=== PATIENT | male | born 1965 ===

== ENCOUNTER 2020-07-04 14:53 | Emergency (ER) | payer MEDICARE ==
[~2020-07-04] VITALS: Ht 180.3 cm; Wt 63.5 kg
[~2020-07-04 14:53] MED LIST: ALBIPROI INH; ALBU.083IS IH; ALBU90OI INH; ALBU90OI6 INH; ALBUIS IH; BECL40OI INH; BUDE6HFA INH; CODGUAEL PO; DOXY100 PO; LORA1 PO; MOXI400 PO; OXYACE5T PO; PRED20 PO; SULTRISS PO; TIOT18 IH; TRAM50 PO; ZOLP10 PO; ZOLP5 PO; [UNRECOGNIZED DRUG - REMARK]
[2020-07-04 15:28] LABS: BASOPHILS ABSOLUTE AUTO 0.07 K/mm3 (0.00-0.23); BASOPHILS PERCENT AUTO 1 % (0-2); EOSINOPHILS ABSOLUTE AUTO 0.41 K/mm3 (0.00-0.68); EOSINOPHILS PERCENT AUTO 3 % (0-6); Hematocrit 48.8 % (37.0-53.0); IMMATURE GRAN PERCENT AUTO 1 % (0-1); LYMPHOCYTES PERCENT AUTO 18 % (21-46); MONOCYTES ABSOLUTE AUTO 1.22 K/mm3 (0.16-1.47); MONOCYTES PERCENT AUTO 10 % (4-13); Mean Corpuscular HGB 28.5 pg (26.0-34.0); Mean Corpuscular HGB Conc 32.8 g/dL (31.5-36.5); Mean Corpuscular Volume 87 fL (80-100); Mean Platelet Volume 9.1 fL (9.1-12.4); NEUTROPHILS ABSOLUTE AUTO 8.01 K/mm3 (1.96-9.15); NEUTROPHILS PERCENT AUTO 67 % (41-73); Platelet Count 283 K/mm3 (150-400); RDW Coefficient Variation 13.2 % (11.7-14.2); RDW Standard Deviation 41.7 fL (35.1-46.3); Red Blood Cell Count 5.61 M/mm3 (4.30-5.90); White Blood Cell Count 11.91 K/mm3 (4.00-11.30)
[2020-07-04] MEDS ORDERED: TRAZ50 PO (15:38)
[2020-07-04] MEDS ORDERED: TRAM50 PO (15:38)
[2020-07-04] MEDS ORDERED: GENT.3OPSO (15:39)
[2020-07-04] MEDS ORDERED: GENT15TO TOP (15:39)
[2020-07-04] MEDS ORDERED: AZIT250 PO (16:17)
[2020-07-04 17:18] LABS: Alanine Aminotransfer (ALT/SGP 39 U/L (12-78); Albumin, Blood 3.6 g/dL (3.4-5.0); Albumin/Globulin Ratio 0.8 (0.8-1.8); Alk Phos 109 U/L (50-136); Anion Gap 6 mmol/L (6-16); Aspartate Aminotrans (AST/SGOT 22 U/L (12-37); Bilirubin, Total 0.2 mg/dL (0.1-1.0); Blood Urea Nitrogen 19 mg/dL (8-24); Bun/Creatinine Ratio 21.2 (12.0-20.0); CO2, Blood 25 mmol/L (21-32); Calcium, Blood 9.1 mg/dL (8.5-10.1); Chloride, Blood 106 mmol/L (98-108); Globulin, Blood 4.6 g/dL (2.2-4.0); Glomerular Filtration Rate >60 (60-); Glucose, Blood 77 mg/dL (70-99); Potassium, Blood 4.3 mmol/L (3.5-5.5); Sodium, Blood 137 mmol/L (136-145); Total Protein, Blood 8.2 g/dL (6.4-8.2); Troponin I <0.015 ng/mL (0.000-0.040)
[2020-09-18] MEDS ORDERED: PRED20 (18:33)
[2020-09-18] MEDS ORDERED: AMOCLA875 (18:33)
[2020-09-18] MEDS ORDERED: CICLODAN6.6 ML (18:34)
== END 2020-07-04 17:42 | disposition home or self-care (01) ==
LOC: ER 14:53
PROVIDERS: Physician Assistant
DX: J18.9 Pneumonia, unspecified organism (principal); R07.89 Other chest pain; J43.9 Emphysema, unspecified; F17.200 Nicotine dependence, unspecified, uncomplicated; Z79.899 Other long term (current) drug therapy; Z88.6 Allergy status to analgesic agent
CPT/HCPCS: 36415; 71046; 80053; 84484; 85025; 93005; 93010; 99285-25

== ENCOUNTER → 2021-08-18 | Outpatient (CLI) | payer MEDICARE ==
[~2021-08-18] MED LIST changes: +AMOCLA875; +AZIT250 PO; +CICLODAN6.6 ML; +GENT.3OPSO; +GENT15TO TOP; +PRED20; +TRAZ50 PO
== END | disposition home or self-care (01) ==
LOC: LAB SHORT 10:20
DX: J47.1 Bronchiectasis with (acute) exacerbation (principal); J43.9 Emphysema, unspecified; R06.02 Shortness of breath; R05.9 Cough, unspecified; Z87.891 Personal history of nicotine dependence
CPT/HCPCS: 87070; 87205

== ENCOUNTER 2024-09-08 16:18 | Emergency (ER) | payer MEDICARE ==
[~2024-09-08] VITALS: Ht 180.3 cm; Wt 63.5 kg
[~2024-09-08 16:18] MED LIST changes: +GABA100 PO; +MELO7.5 PO; +Prednisone20 MG PO; +ZOLPIDEM TARTRA10 MG PO
[2024-09-08] MEDS ORDERED: MethylPREDNISolone Sod Succ 125 MG Vial IV ONE (16:30)
[2024-09-08] MEDS ORDERED: Albuterol 2.5 MG/3 ML VIAL INH SCH (16:30)
[2024-09-08] MEDS ORDERED: NS 1,000 ML IV SCH ×2 (16:30→20:30)
[2024-09-08 16:32] LABS: Base Excess Venous 2.9 mmol/L; Bicarbonate Venous 26.3 mmol/L (24.0-30.0); PCO2 Venous 43.1 mmHg (38-42); pH Blood Venous 7.41 (7.34-7.37)
[2024-09-08] MEDS ORDERED: HYDHCL25 (16:35)
[2024-09-08] MEDS ORDERED: MECL25 PO (16:35)
[2024-09-08 16:55] LABS: BASOPHILS ABSOLUTE AUTO 0.09 K/mm3 (0.00-0.23); BASOPHILS PERCENT AUTO 1 % (0-2); EOSINOPHILS ABSOLUTE AUTO 0.16 K/mm3 (0.00-0.68); EOSINOPHILS PERCENT AUTO 1 % (0-6); Hematocrit 51.5 % (37.0-53.0); Hemoglobin 16.3 g/dL (13.5-17.5); IMMATURE GRAN ABSOLUTE AUTO 0.03 K/mm3 (0.00-0.10); IMMATURE GRAN PERCENT AUTO 0 % (0-1); LYMPHOCYTES PERCENT AUTO 10 % (21-46); MONOCYTES ABSOLUTE AUTO 1.98 K/mm3 (0.16-1.47); MONOCYTES PERCENT AUTO 17 % (4-13); Mean Corpuscular HGB 27.2 pg (26.0-34.0); Mean Corpuscular HGB Conc 31.7 g/dL (31.5-36.5); Mean Corpuscular Volume 86 fL (80-100); Mean Platelet Volume 9.3 fL (9.1-12.4); NEUTROPHILS ABSOLUTE AUTO 8.13 K/mm3 (1.96-9.15); NEUTROPHILS PERCENT AUTO 70 % (41-73); Platelet Count 365 K/mm3 (150-400); RDW Coefficient Variation 14.1 % (11.7-14.2); RDW Standard Deviation 44.4 fL (35.1-46.3); White Blood Cell Count 11.59 K/mm3 (4.00-11.30)
[2024-09-08 17:17] LABS: Albumin, Blood 3.7 g/dL (3.4-5.0); Albumin/Globulin Ratio 0.8 (0.8-1.8); Bilirubin, Total 0.3 mg/dL (0.1-1.0); Bun/Creatinine Ratio 12.9 (12.0-20.0); Calcium, Blood 9.2 mg/dL (8.5-10.1); Creatinine, Blood 0.93 mg/dL (0.60-1.20); Globulin, Blood 4.7 g/dL (2.2-4.0); Potassium, Blood 4.1 mmol/L (3.5-5.5); Total Protein, Blood 8.4 g/dL (6.4-8.2)
[2024-09-08] MEDS ORDERED: Morphine Sulfate 4 MG/1 ML Injection IV ONE ×2 (18:10→18:50)
[2024-09-08 18:22] LABS: Influenza A, PCR NEGATIVE (NEGATIVE); Influenza B, PCR NEGATIVE (NEGATIVE); Resp Syncytial Virus, PCR NEGATIVE (NEGATIVE); SARS-Cov-2 (COVID-19) PCR, MMC NEGATIVE (NEGATIVE)
[2024-09-08] MEDS ORDERED: Azithromycin 500 MG in NS 250 ML IV ONE (18:45)
[2024-09-08] MEDS ORDERED: CefTRIAXone Sodium 2,000 MG in NS 100 ML IV ONE (18:45)
[2024-09-08] MEDS ORDERED: Ipratropium/Albuterol SulF 2.5-0.5MG/3 ML Amp INH SCH (20:30)
[2024-09-08] MEDS ORDERED: Ondansetron HCl 2 MG / ML 2ML Vial IV PRN (20:30)
[2024-09-08] MEDS ORDERED: Tiotropium Bromide 2.5 MCG/ACT MIST INHAL (10 ACT/4 GM) INH SCH (20:40)
[2024-09-08] MEDS ORDERED: Gabapentin 100 MG Cap PO SCH (21:00)
[2024-09-08] MEDS ORDERED: TraZODone HCl 50 MG Tab PO SCH (21:00)
[2024-09-08] MEDS ORDERED: Morphine Sulfate 4 MG/1 ML Injection IV PRN (22:35)
[2024-09-08 23:30] VITALS: BP 142/74
[2024-09-09] MEDS ORDERED: Enoxaparin 40 MG/0.4 ML SYR SC SCH (09:00)
[2024-09-09] MEDS ORDERED: CefTRIAXone Sodium 1,000 MG in NS 100 ML IV SCH (18:00)
[2024-09-09] MEDS ORDERED: Azithromycin 500 MG in NS 250 ML IV SCH (21:00)
== END 2024-09-09 00:13 ==
LOC: ER 16:18
PROVIDERS: Student in an Organized Health Care Education/Training Program
DX: J93.9 Pneumothorax, unspecified (principal); J18.9 Pneumonia, unspecified organism; J43.9 Emphysema, unspecified
CPT/HCPCS: 0241U; 32551; 71045; 71046; 80053; 82803; 84145; 85025; 93005; 93010; 94640; 94664; 96365-59; 96367-59; 96375-59; 96376-59; 99285-25; A9270; J0456; J0696; J2270; J2919; J7030; J7050

== ENCOUNTER 2024-10-16 13:51 | Inpatient (IN) | payer MEDICARE ==
[~2024-10-16] VITALS: Ht 177.8 cm; Wt 62.3 kg
[~2024-10-16 13:51] MED LIST changes: +HYDHCL25; +MECL12.5 PO
[2024-10-16 14:48] LABS: BASOPHILS ABSOLUTE AUTO 0.07 K/mm3 (0.00-0.23); BASOPHILS PERCENT AUTO 0 % (0-2); EOSINOPHILS ABSOLUTE AUTO 0.06 K/mm3 (0.00-0.68); EOSINOPHILS PERCENT AUTO 0 % (0-6); Hematocrit 50.7 % (37.0-53.0); Hemoglobin 15.8 g/dL (13.5-17.5); IMMATURE GRAN PERCENT AUTO 0 % (0-1); LYMPHOCYTES PERCENT AUTO 5 % (21-46); MONOCYTES ABSOLUTE AUTO 1.57 K/mm3 (0.16-1.47); MONOCYTES PERCENT AUTO 7 % (4-13); Mean Corpuscular HGB 27.3 pg (26.0-34.0); Mean Corpuscular HGB Conc 31.2 g/dL (31.5-36.5); Mean Corpuscular Volume 88 fL (80-100); Mean Platelet Volume 9.9 fL (9.1-12.4); NEUTROPHILS ABSOLUTE AUTO 19.43 K/mm3 (1.96-9.15); NEUTROPHILS PERCENT AUTO 87 % (41-73); Platelet Count 292 K/mm3 (150-400); RDW Coefficient Variation 13.3 % (11.7-14.2); RDW Standard Deviation 42.6 fL (35.1-46.3); Red Blood Cell Count 5.78 M/mm3 (4.30-5.90); White Blood Cell Count 22.23 K/mm3 (4.00-11.30)
[2024-10-16 15:04] LABS: Albumin, Blood 3.4 g/dL (3.4-5.0); Albumin/Globulin Ratio 0.7 (0.8-1.8); Bilirubin, Total 0.7 mg/dL (0.1-1.0); Bun/Creatinine Ratio 17.9 (12.0-20.0); Calcium, Blood 9.4 mg/dL (8.5-10.1); Creatinine, Blood 0.9 mg/dL (0.60-1.20); Globulin, Blood 5.2 g/dL (2.2-4.0); Potassium, Blood 3.9 mmol/L (3.5-5.5); Total Protein, Blood 8.6 g/dL (6.4-8.2)
[2024-10-16] MEDS ORDERED: Azithromycin 500 MG in NS 250 ML IV ONE (15:15)
[2024-10-16] MEDS ORDERED: AZIT250 PO (15:34)
[2024-10-16] MEDS ORDERED: TAMSULOSIN HCL0.4 M1 PO (15:34)
[2024-10-16] MEDS ORDERED: SPIRIVA RESPIMAT4 G3 INH (15:35)
[2024-10-16] MEDS ORDERED: PROAIR DIGIHAL90 MCG INH (15:36)
[2024-10-16] MEDS ORDERED: Morphine Sulfate 4 MG/1 ML Injection IV PRN ×2 (15:55→19:15)
[2024-10-16] MEDS ORDERED: OxyCODONE HCL 5 MG TAB PO PRN (16:00)
[2024-10-16] MEDS ORDERED: Lactated Ringer's 1,000 ML IV SCH ×2 (16:00→17:00)
[2024-10-16] MEDS ORDERED: Ipratropium/Albuterol SulF 2.5-0.5MG/3 ML Amp INH PRN (16:10)
[2024-10-16] MEDS ORDERED: Albuterol 2.5 MG/3 ML VIAL INH PRN (16:10)
[2024-10-16] MEDS ORDERED: Ondansetron 4 MG SoluTab MM PRN (16:15)
[2024-10-16] MEDS ORDERED: Polyethylene Glycol 3350 17 gm PO PRN (16:15)
[2024-10-16] MEDS ORDERED: Docusate Sodium/Senna 1 Tab PO PRN (16:15)
[2024-10-16 16:35] LABS: Bicarbonate Venous 26.4 mmol/L (24.0-30.0); PCO2 Venous 44.3 mmHg (38-42); pH Blood Venous 7.41 (7.34-7.37)
[2024-10-16 16:52] LABS: Influenza A, PCR NEGATIVE (NEGATIVE); Influenza B, PCR NEGATIVE (NEGATIVE); Resp Syncytial Virus, PCR NEGATIVE (NEGATIVE); SARS-Cov-2 (COVID-19) PCR, MMC NEGATIVE (NEGATIVE)
[2024-10-16] MEDS ORDERED: CefTRIAXone Sodium 1,000 MG in NS 100 ML IV SCH (17:00)
[2024-10-16] MEDS ORDERED: MethylPREDNISolone Sod Succ 125 MG Vial IV SCH (17:00)
[2024-10-16 17:22] VITALS: BP 154/109
[2024-10-16] MEDS ORDERED: TIZANIDINE HCL2 M1 PO (17:27)
[2024-10-16] MEDS ORDERED: OXYC5 PO (17:30)
[2024-10-16] MEDS ORDERED: PREG50 PO (17:32)
[2024-10-16] MEDS ORDERED: CELE100 PO (17:33)
[2024-10-16] MEDS ORDERED: Atarax10 MG PO (17:34)
[2024-10-16] MEDS ORDERED: OMEP20ER PO (17:36)
[2024-10-16] MEDS ORDERED: MELA3 PO (17:37)
[2024-10-16] MEDS ORDERED: Meclizine HCl 25 MG Tab PO PRN (18:30)
[2024-10-16] MEDS ORDERED: TiZANidine HCl 4 MG Tab PO PRN (18:30)
[2024-10-16] MEDS ORDERED: HyDROXyzine HCl 10 MG Tab PO PRN (18:30)
[2024-10-16 19:58] VITALS: BP 138/71
[2024-10-16 20:44] LABS: Acinetobacter baumannii DNA Not Detected copy/mL (NOT DETECT); Adenovirus DNA Not Detected (NOT DETECT); CTX-M Resistance Gene Not Detected; Chlamydia pneumonia Not Detected (NOT DETECT); Enterobacter cloacae DNA Not Detected copy/mL (NOT DETECT); Escherichia coli DNA Not Detected copy/mL (NOT DETECT); Haemophilus influenzae DNA Not Detected copy/mL (NOT DETECT); Human Coronavirus RNA Not Detected (NOT DETECT); IMP Resistance Gene Not Detected; KPC Resistance Gene Not Detected; Klebsiella aerogenes DNA Not Detected copy/mL (NOT DETECT); Klebsiella oxytoca DNA Not Detected copy/mL (NOT DETECT); Klebsiella pneumoniae DNA Not Detected copy/mL (NOT DETECT); Legionella pneumophila Not Detected (NOT DETECT); Moraxella catarrhalis DNA Not Detected copy/mL (NOT DETECT); Mycoplasma pneumoniae Not Detected (NOT DETECT); NDM Resistance Gene Not Detected; OXA-48-like Resistance Gene Not Detected; Proteus sp DNA Not Detected copy/mL (NOT DETECT); Pseudomonas aeruginosa DNA Not Detected copy/mL (NOT DETECT); Serratia marcescens DNA Detected Bin >=10^7 copy/mL (NOT DETECT); Staphylococcus aureus DNA Not Detected copy/mL (NOT DETECT); Streptococcus agalactiae DNA Not Detected copy/mL (NOT DETECT); Streptococcus pneumoniae DNA Not Detected copy/mL (NOT DETECT); Streptococcus pyogenes DNA Not Detected copy/mL (NOT DETECT); VIM Resistance Gene Not Detected
[2024-10-16 20:45] LABS: Human Metapneumovirus RNA Not Detected (NOT DETECT); Influenza virus A RNA Not Detected (NOT DETECT); Influenza virus B RNA Not Detected (NOT DETECT); Parainfluenza virus RNA Not Detected (NOT DETECT); Respiratory syncytial Vir RNA Not Detected (NOT DETECT); Rhinovirus+Enterovirus RNA Not Detected (NOT DETECT)
[2024-10-16] MEDS ORDERED: Melatonin 3 MG Tab PO SCH (21:00)
[2024-10-16] MEDS ORDERED: Pregabalin 50 MG Capsule PO SCH (21:00)
[2024-10-16 21:43] LABS: Adenovirus Not Detected (NOT DETECT); Bordetella pertussis Not Detected (NOT DETECT); Chlamydophila pneumoniae Not Detected (NOT DETECT); Coronavirus 229E Not Detected (NOT DETECT); Coronavirus HKU1 Not Detected (NOT DETECT); Coronavirus NL63 Not Detected (NOT DETECT); Coronavirus OC43 Not Detected (NOT DETECT); Human Metapneumovirus Not Detected (NOT DETECT); Human Rhinovirus/Enterovirus Not Detected (NOT DETECT); Influenza A/2009-H1 Not Detected (NOT DETECT); Influenza A/H1 Not Detected (NOT DETECT); Influenza A/H3 Not Detected (NOT DETECT); Influenza B Not Detected (NOT DETECT); Mycoplasma pneumoniae Not Detected (NOT DETECT); Parainfluenza Virus 1 Not Detected (NOT DETECT); Parainfluenza Virus 2 Not Detected (NOT DETECT); Parainfluenza Virus 3 Not Detected (NOT DETECT); Parainfluenza Virus 4 Not Detected (NOT DETECT); Respiratory Syncytial Virus Not Detected (NOT DETECT); SARS-Cov-2 (COVID-19), BioFire Not Detected (NOT DETECT)
[2024-10-17] MEDS ORDERED: TraZODone HCl 50 MG Tab PO PRN (02:09)
[2024-10-17 03:20] VITALS: BP 146/83
[2024-10-17 04:42] LABS: BASOPHILS PERCENT AUTO 0 % (0-2); EOSINOPHILS PERCENT AUTO 0 % (0-6); Hematocrit 40.6 % (37.0-53.0); Hemoglobin 13.1 g/dL (13.5-17.5); IMMATURE GRAN ABSOLUTE AUTO 0.05 K/mm3 (0.00-0.10); IMMATURE GRAN PERCENT AUTO 0 % (0-1); LYMPHOCYTES ABSOLUTE AUTO 0.43 K/mm3 (0.84-5.20); LYMPHOCYTES PERCENT AUTO 3 % (21-46); MONOCYTES ABSOLUTE AUTO 0.13 K/mm3 (0.16-1.47); MONOCYTES PERCENT AUTO 1 % (4-13); Mean Corpuscular HGB 28.4 pg (26.0-34.0); Mean Corpuscular HGB Conc 32.3 g/dL (31.5-36.5); Mean Corpuscular Volume 88 fL (80-100); NEUTROPHILS ABSOLUTE AUTO 12.65 K/mm3 (1.96-9.15); NEUTROPHILS PERCENT AUTO 95 % (41-73); Platelet Count 209 K/mm3 (150-400); RDW Coefficient Variation 13.1 % (11.7-14.2); RDW Standard Deviation 41.8 fL (35.1-46.3); Red Blood Cell Count 4.62 M/mm3 (4.30-5.90); White Blood Cell Count 13.26 K/mm3 (4.00-11.30)
[2024-10-17 05:03] LABS: Bun/Creatinine Ratio 23.3 (12.0-20.0); Calcium, Blood 8.7 mg/dL (8.5-10.1); Creatinine, Blood 0.77 mg/dL (0.60-1.20); Potassium, Blood 4.5 mmol/L (3.5-5.5)
[2024-10-17] MEDS ORDERED: Omeprazole 20 MG CapCR PO SCH (06:00)
--- NOTE | 2024-10-17 06:44 | NUR ---
Patient was awake most of the night. pain controled mostly with medication. prn for sleep given althought ineffective.
[2024-10-17 07:41] VITALS: BP 134/72
[2024-10-17] MEDS ORDERED: Celecoxib 100 MG Cap PO SCH (09:00)
[2024-10-17] MEDS ORDERED: Tamsulosin HCl 0.4 MG Cap PO SCH (09:00)
[2024-10-17] MEDS ORDERED: Enoxaparin 40 MG/0.4 ML SYR SC SCH (09:00)
[2024-10-17] MEDS ORDERED: QUEtiapine Fumarate 25 MG Tab PO PRN (17:25)
[2024-10-17] MEDS ORDERED: Azithromycin 500 MG in NS 250 ML IV SCH (18:00)
--- NOTE | 2024-10-17 18:14 | NUR ---
SHIFT SUMMARY DAY A&oX4, VSS, LUNG SOUNDS AND BREATHING GREATLY IMPROVED, PT WALKED LAPS IN HALLWAY SEVERAL TIMES W/DEPENDENCY PROGRAM DIRECTOR THIS SHIFT, MEDICATED FOR PAIN PER, SEROQUEL ORDERED FOR SLEEP TONIGHT, PT C/O NOT BEING ABLE TO SLEEP, WILL CONT TO MONITOR UNTIL REPORT GIVEN TO ONCOMING NURSE.
[2024-10-17 19:16] VITALS: BP 142/83
[2024-10-18 02:28] VITALS: BP 127/77
--- NOTE | 2024-10-18 04:20 | NUR ---
SHIFT SUMMARY: ASSUMMED CARE AT 0030 FROM SENIOR RESERVOIR ENGINEER RADHA. AOX4. VSS. WHEEZES NOTED TO LUNG SOUNDS, BUT PT IS ON BASELINE OF 2L O2. NO RESPIRATORY DISTRESS OR INCREASED WORK OF BREATHING NOTED. CALL LIGHT IS WITHIN REACH. BED IS LOW AND LOCKED.
[2024-10-18 07:24] VITALS: BP 153/82
--- NOTE | 2024-10-18 11:34 | NUR ---
SPOKE TO [facility] IN INFECTION CONTROL- THE PT HAS A SPUTUM CULTURE WITH A FINAL RESULT THAT SUGESTS POSSIBLE NEED FOR ISOLATION. AND STATES RESULT WAS REPORTED TO [facility]. [facility] PASTOR REVIEWED, PT RETURNED TO DROPPLET/CONTACT ISOLATION PER INFECTION PREVENTION.
--- NOTE | 2024-10-18 14:01 | NUR ---
TRANSFER PT CARE TO [facility]GROVE- BEDSIDE REPORT COMPLETED PAIN MED GIVEN JUST PRIOR TO REPORT. PT SITTING UP IN BED TALKING TO STAFF NO S&S OF DISTRESS NOTED.
--- NOTE | 2024-10-18 15:09 | NUR ---
SHIFT SUMMARY: PATIENT IS IN ROOM WATCHING TV, CURRENTLY ON 2 LITERS O2, RESPIRATIONS SLIGHTLY LABORED, NO REPORTS OF SOB. HE HAS BEEN SITTING AT BEDSIDE MOST OF THIS SHIFT. NO TELEMETRY AND NO REPORTS OF CHEST PAIN OR DISCOMFORT. IV REMOVED FROM L ARM DUE TO DISCOMFORT, IV INSERTED IN R FOREARM. BLOOD DRAW ON RIGHT SIDE THIS SHIFT. RN ADMINISTERED IV MORPHINE AND NOTICED RED VEIN ABOVE CANNULA SIGHT, RESOLVED AND MONITORING THIS SHIFT. PATIENT WAS A LIMITED ASSIST TO BATHROOM AND CONTINENT OF BOWEL AND BLADDER. PAIN LEVEL 9/10 AND MEDICATED PER EMAR. PATIENT HAS BEEN PLEASANT AN COOPERATIVE WITH TREATMENT. CALL LIGHT IN PLACE AND USING APPROPRIATELY. NO BED/CHAIR ALARMS.
--- NOTE | 2024-10-18 15:25 | NUR ---
SHIFT SUMMARY ASSUMED PT FROM DAWIT ANDREWS @ 1500. nO ACUTE CHANGES SINCE ASSUMING CARE, PT STATES HIS BREATHING HAS IMPROVED AND HE HAS BEEN COUGHING/CLEARING ALOT OF PHLEGM. DRESSING CHANGED ON R CHEST THIS SHIFT, NO DRAINAGE, NO S/SX OF INFECTION, CLEANED AND REPLACED DRESSING. PT BEDRESTING AT THIS TIME, CALL LIGHT IN REACH, WILL CONT TO MONITOR.
[2024-10-18 15:48] VITALS: BP 157/90
[2024-10-18] MEDS ORDERED: ALBU2.5V5 NEB (16:10)
[2024-10-18] MEDS ORDERED: MOMETASONE 0.1% (16:12)
[2024-10-19 04:33] VITALS: BP 122/74
[2024-10-19 04:47] LABS: BASOPHILS ABSOLUTE AUTO 0.01 K/mm3 (0.00-0.23); BASOPHILS PERCENT AUTO 0 % (0-2); EOSINOPHILS PERCENT AUTO 0 % (0-6); Hematocrit 40.9 % (37.0-53.0); Hemoglobin 13.2 g/dL (13.5-17.5); IMMATURE GRAN ABSOLUTE AUTO 0.15 K/mm3 (0.00-0.10); IMMATURE GRAN PERCENT AUTO 1 % (0-1); LYMPHOCYTES ABSOLUTE AUTO 0.43 K/mm3 (0.84-5.20); LYMPHOCYTES PERCENT AUTO 3 % (21-46); MONOCYTES ABSOLUTE AUTO 0.44 K/mm3 (0.16-1.47); MONOCYTES PERCENT AUTO 3 % (4-13); Mean Corpuscular HGB 28.4 pg (26.0-34.0); Mean Corpuscular HGB Conc 32.3 g/dL (31.5-36.5); Mean Corpuscular Volume 88 fL (80-100); NEUTROPHILS ABSOLUTE AUTO 16.26 K/mm3 (1.96-9.15); NEUTROPHILS PERCENT AUTO 94 % (41-73); Platelet Count 208 K/mm3 (150-400); RDW Coefficient Variation 13.6 % (11.7-14.2); RDW Standard Deviation 43.9 fL (35.1-46.3); Red Blood Cell Count 4.65 M/mm3 (4.30-5.90); White Blood Cell Count 17.29 K/mm3 (4.00-11.30)
[2024-10-19 05:03] LABS: Bun/Creatinine Ratio 22.9 (12.0-20.0); Calcium, Blood 8.9 mg/dL (8.5-10.1); Creatinine, Blood 0.83 mg/dL (0.60-1.20); Potassium, Blood 4.1 mmol/L (3.5-5.5)
--- NOTE | 2024-10-19 06:08 | NUR ---
SHIFT SUMMARY PT SLEPT INTERMITTENTLY DURING THE NIGHT. MEDICATED FOR PAIN PER EMAR. PT WITH VARIOUS AREAS OF CHRONIC PAIN. PT MAINTAINED ON OXYGEN AT 2L NC, INCREASING TO 3L NC WHEN HE GETS OOB. PT STATES IMPROVEMENT OF SOB. BED IN LOWEST POSITION, CALL LIGHT WITHIN REACH, SIDERAILS UP X2.
[2024-10-19 07:52] VITALS: BP 149/81
[2024-10-19 16:15] VITALS: BP 164/90
[2024-10-19 19:18] VITALS: BP 155/90
[2024-10-20 02:48] VITALS: BP 160/80
[2024-10-20 04:51] LABS: BASOPHILS ABSOLUTE AUTO 0.03 K/mm3 (0.00-0.23); BASOPHILS PERCENT AUTO 0 % (0-2); EOSINOPHILS ABSOLUTE AUTO 0.01 K/mm3 (0.00-0.68); EOSINOPHILS PERCENT AUTO 0 % (0-6); Hemoglobin 12.9 g/dL (13.5-17.5); IMMATURE GRAN ABSOLUTE AUTO 0.29 K/mm3 (0.00-0.10); IMMATURE GRAN PERCENT AUTO 2 % (0-1); LYMPHOCYTES ABSOLUTE AUTO 0.35 K/mm3 (0.84-5.20); LYMPHOCYTES PERCENT AUTO 3 % (21-46); MONOCYTES PERCENT AUTO 5 % (4-13); Mean Corpuscular HGB 27.8 pg (26.0-34.0); Mean Corpuscular HGB Conc 32.3 g/dL (31.5-36.5); Mean Corpuscular Volume 86 fL (80-100); Mean Platelet Volume 9.9 fL (9.1-12.4); NEUTROPHILS ABSOLUTE AUTO 11.49 K/mm3 (1.96-9.15); NEUTROPHILS PERCENT AUTO 89 % (41-73); Platelet Count 171 K/mm3 (150-400); RDW Coefficient Variation 13.5 % (11.7-14.2); RDW Standard Deviation 42.3 fL (35.1-46.3); Red Blood Cell Count 4.64 M/mm3 (4.30-5.90); White Blood Cell Count 12.87 K/mm3 (4.00-11.30)
--- NOTE | 2024-10-20 05:16 | NUR ---
SHIFT SUMMARY PT ALERT ORIENTED CALLS APPROPRIATELY. GETS UP AND AMBULATES TO THE BATHROOM WITH SBA. REMAINS ON O2 ATY 2L VIA NC. REMAINS ON ZITHROMAX AND ROCEPHIN ORDERED FOR PNEUMONIA AND COPD EXAC. C/O PAIN AT OLD CHEST TUBE SITE MEDICATED WITH MORPHINE AND OXY WITH GOOD PAIN RELIEF. C/O ANXIETY MEDICATED WITH ATARAX AND ZANAFLEX. C/O TROUBLE FALLING ASLEEP MEDICATED WITH TRAZADONE AND HE SLEPT OFF AND ON ALL NIGHT. RESTING IN BED AT THIS TIME WITH CALL LIGHT IN REACH
[2024-10-20 05:18] LABS: Bun/Creatinine Ratio 31.1 (12.0-20.0); Calcium, Blood 8.5 mg/dL (8.5-10.1); Creatinine, Blood 0.71 mg/dL (0.60-1.20); Potassium, Blood 3.8 mmol/L (3.5-5.5)
[2024-10-20 07:34] VITALS: BP 151/93
[2024-10-20] MEDS ORDERED: LORazepam 2 MG/ML 1ML Injection IV PRN (13:50)
[2024-10-20] MEDS ORDERED: Morphine Sulfate 10 MG/ML 1MLSYR IV ONE (16:05)
[2024-10-20 16:21] VITALS: BP 149/93
[2024-10-20 16:55] VITALS: BP 155/97
--- NOTE | 2024-10-20 18:47 | NUR ---
pt had chest x ray. md reviewed and saw pnemothorax. bedside chest tube placed around 1630. see notes for details by md. see emar for frequency of medications given. stst chest xray done for placement. pt has c/o pain. no sob or chest pain.
[2024-10-20 19:14] VITALS: BP 161/100
[2024-10-20] MEDS ORDERED: MethylPREDNISolone Sod Succ 40 MG VIAL IV SCH (21:00)
[2024-10-21 04:15] VITALS: BP 115/65
--- NOTE | 2024-10-21 05:54 | NUR ---
Shift Summary AOx4. Poor sleep. Medicated for sleep per EMAR with minimnal effect. Slept on and off. Offered seroquel for insomnia, pt declined and stated "I just want to take what I'm familiar with. I don't want to take any new medication." Pt also requesting to take 20mg of atarax as oppose to what is ordered (30 mg). Gave snacks throughout shift per patient demand, great appetite. Was slightly hypertensive however VS much improved as pain was better managed. Cooperative with care. Uses call light appropriately. 1p SBA to bedside commode, independent with urinal. Large ss drainage noted on chest tube dressing; area outlined on 10/20/24 @ 2120; no presence of crepitus on surrounding tissue. VSS, afebrile.
[2024-10-21 07:08] VITALS: BP 144/94
[2024-10-21 15:16] VITALS: BP 155/102
--- NOTE | 2024-10-21 16:28 | NUR ---
NO CHANGES IN PT STATUS. CHEST TUBE STILL IN PLACE, SCANT AMOUNT OF BLOODGONE THROUGH THE BANDAGE AND MD AWARE WITH NO CONCERNS. PT HAS C/O PAIN, SEE EMAR FOR FREQUENCY AND MEDS GIVE. PT HAS NO SOB OR CHEST PAIN.
[2024-10-21 19:23] VITALS: BP 160/97
[2024-10-22 04:21] VITALS: BP 142/77
--- NOTE | 2024-10-22 05:17 | NUR ---
SHIFT SUMMARY: PT AOX4 SBA/1PA IN THE ROOM. CAN BE NONCOMPLIANT WITH SOME CARE, NOT CALLING TO STAND/ CHANGING HIS O2 LEVELS DESPITE BEING ASKED TO CALL AND ALLOW US TO HELP. COMPLAINTS OF PAIN, MEDICATED PER EMR. PT TOLERATING MEDICATIONS WELL. CHEST TUBE SCANT SEROSENGUINOUS OUTPUT ~10MLS, OCCASIONAL BUBBLES. NO ACUTE OVERNIGHT EVENTS. PT IN BED SLEEPING, BED IN LOWEST POSITION, CALL LIGHT IN REACH. CONTINUING CARE.
[2024-10-22 07:06] VITALS: BP 136/76
[2024-10-22 14:37] VITALS: BP 180/104
[2024-10-22] MEDS ORDERED: NS 250 ML IV PRN (18:20)
[2024-10-22 19:48] VITALS: BP 164/89
[2024-10-23 02:39] VITALS: BP 123/72
--- NOTE | 2024-10-23 04:46 | NUR ---
SHIFT SUMMARY: PT AOX4 SBA TO BSC, IND TO URINAL. CALLS APPROPRAITELY AND ABLE TO MAKE NEEDS KNOWN. SATTING WELL ON 2-4 L OF O2 WHICH IS BL. CHEST TUBE HAVING SOME SEROSANGUINES DRAINAGE AND SEAL IS INTACT. TOLERATING MEDICATIONS WELL. STILL REQUIRING Q4 PAIN MEDICATIONS. DENIES CP OR SOB. HAS HAD SOME SMALL BOWEL MOVEMENTS. PT IN BED RESTING, BED IN LOWEST POSTION, CALL LIGHT IN REACH. CONTINUING CARE.
[2024-10-23 07:17] VITALS: BP 146/90
[2024-10-23] MEDS ORDERED: MethylPREDNISolone Sod Succ 40 MG VIAL IV SCH (09:00)
[2024-10-23 10:24] LABS: Hematocrit 44.1 % (37.0-53.0); Hemoglobin 14.2 g/dL (13.5-17.5); Mean Corpuscular HGB 28.4 pg (26.0-34.0); Mean Corpuscular HGB Conc 32.2 g/dL (31.5-36.5); Mean Corpuscular Volume 88 fL (80-100); NRBC ABSOLUTE 0.02 K/mm3 (0.00-0.02); NRBC Auto 0.1 /100 WBC (0.0-0.2); Platelet Count 182 K/mm3 (150-400); RDW Coefficient Variation 14.2 % (11.7-14.2); RDW Standard Deviation 45.5 fL (35.1-46.3); White Blood Cell Count 20.22 K/mm3 (4.00-11.30)
[2024-10-23 10:50] LABS: Bun/Creatinine Ratio 34.2 (12.0-20.0); Creatinine, Blood 0.85 mg/dL (0.60-1.20); Potassium, Blood 3.9 mmol/L (3.5-5.5)
[2024-10-23 11:03] LABS: BAND PERCENT MAN 2 % (0-8); BASOPHILS PERCENT MAN 0 % (0-2); EOSINOPHILS PERCENT MAN 0 % (0-6); LYMPHOCYTES ABSOLUTE MAN 1.21 K/mm3 (0.84-5.20); LYMPHOCYTES PERCENT MAN 6 % (21-46); MONOCYTES ABSOLUTE MAN 1.61 K/mm3 (0.16-1.47); MONOCYTES PERCENT MAN 8 % (4-13); NEUTROPHILS ABSOLUTE MAN 17.38 K/mm3 (1.96-9.15); SEG NEUTROPHILS PERCENT MAN 84 % (41-73); TOTAL CELLS COUNTED 100
--- NOTE | 2024-10-23 11:18 | NUR ---
BREAK RN ADMINISTERED IV PAIN MED TO PT APPROX 1100.
--- NOTE | 2024-10-23 12:33 | NUR ---
PT IN 358 TURNED COLLATERAL ANALYST LIGHT. I CHECKED ON HIM AND HE SAID HE WANTED PAIN MED AND BEDSIDE COMMODE. i TRIED GETTING IM ON THE COMMODE AND HE SAID NO HE WANTED HIS PAIN MED FIRST. WENT TO FIND NURSE BUT HE WAS IN ANOTHER ROOM. I TOLD THE PT THAT IT WOULD BE JUST A FEW MINUTES BECAUSE NURSE WAS IN A ROOM. HE GOT MAD SAID GET CHARGE NURSE. I TOLD THE CHARGE NURSE. I ALSO TOLD THE BREAK NURSE BECAUSE SHE SENT THE NURSE ON BREAK. THE PT THEN TURNED HIS LIGHT BACK ON BEFORE HE GOT A PAIN MED TO USE COMMODE. PT COMPLAINED ABOUT HIM NOT WANTING THE KID NURSE BECAUSE HE WAITS TO LONG FOR MEDS. PT NEVER WAITED MORE THEN A COUPLE MINUTES FOR ME TO ANSWER THE LIGHT.
--- NOTE | 2024-10-23 12:38 | NUR ---
APPROXIMATELY 1100 WHEN THIS RN CAME BACK FROM [facility]. I WENT INTO PT ROOM TO ASK IF THEY NEED ANY OTHER MEDICATION BESIDES PAIN MED WHILE I WAS OUT. THEY REPORTED THEY WERE IRRITATED WITH THE CARE THEY WERE RECEIVING FROM ME. THAT WHEN HE HAS TO "TAKE A SHIT, HE HAS TO TAKE A SHIT" I ASKED WHAT HE MEANT BY THIS. HE REPORTED THAT HE HAD HIS CALL LIGHT ON FOR 20MINS BEFORE ANYONE CAME IN TO HELP HIM. HE REPORTED HE "SAW ME WALK BY HIS ROOM TWICE ON MY WAY TO [facility] AND IGNORED HIM" I ASKED "WHERE WAS THE SECOND COOK AND BAKER?" HE REPLIED "THAT DOESN'T MATTER". I INFORMED HIM THAT I NEVER SAW HIS CALL LIGHT ON, TO WHICH HE INSISTED IT WAS ON. HE INSISTED THAT THIS RN WAS UNPUNCTUAL WITH HIS MEDICATION REGIME, AND THAT HE HAD TO TELL THIS RN WHEN HIS ANTIBIOTICS WERE DUE LAST NIGHT. THIS RN INFORMED THE PT "I AM TERMINATING THIS CONVERSATION AND AM GOING TO GO GET YOUR MEDICATION" TOOL AND DIE MAKER INFORMED OF SITUATION WHEN ADDRESSED WITH SECOND COOK AND BAKER. SECOND COOK AND BAKER INFORMED THIS RN THAT HE PUSHED HIS CALL LIGHT AND SECOND COOK AND BAKER WENT IN AFTER ABOUT 2 MINS. HE INFORMED SECOND COOK AND BAKER THAT HE NEEDED PAIN MEDS AND TO USE COMMODE. SECOND COOK AND BAKER INFORMED BREAK RN ABOUT PAIN MEDS. SECOND COOK AND BAKER INFORMED THIS RN THAT SHE ATTEMPTED TO HELP PT ONTO COMMODE BUT PT INTERJECTED "NO I NEED MY PAIN MEDS FIRST" ADDRESSED WITH GRAHAM RN: INFORMED THIS RN THAT BREAK RN HAD TO RUN BLOOD SAMPLE TO LAB SINCE TUBE SYSTEM WAS DOWN BUT [facility] RN GAVE PT MEDICATINO SOON SHE WAS ABLE TO. WILL CONTINUE TO MONITOR.
[2024-10-23 16:08] VITALS: BP 167/91
--- NOTE | 2024-10-23 18:01 | NUR ---
SHIFT SUMMARY PT AOX4, COOPERATIVE, ABLE TO MAKE NEEDS KNONW. PT IS STAND PIVOT TO COMMODE TO VOID. ON 2-4L O2 FOR NEEDS. CHEST TUBE HAS BEEN CLAMPS FOR MAJORITY OF SHIFT WITHOUT PT BEING IS DISTRESS. IF PT DOES BECOME IN DISTRESS, CONTACT PULMONOGIST. PT DID BECOME IRRITATED EARLIER IN SHIFT REPORTED IN EARLIER NOTE, AIR GRINDER INFORMED, PT HAS CALMED DOWN SINCE THEN. PT REPORTS THEY ARE GOING TO BE SENT UP TO [facility], THIS RN HAS NOT HEARD ANY INFORMATION ABOUT THIS. TOLERATING PO AND IV MEDICATION. BED IN LOWEST POSITION, CALL LIGHT WITHIN REACH.
[2024-10-23 19:42] VITALS: BP 161/87
[2024-10-24 04:59] VITALS: BP 150/82
[2024-10-24 05:03] LABS: Hematocrit 39.4 % (37.0-53.0); Hemoglobin 12.3 g/dL (13.5-17.5); Mean Corpuscular HGB 27.6 pg (26.0-34.0); Mean Corpuscular HGB Conc 31.2 g/dL (31.5-36.5); Mean Corpuscular Volume 89 fL (80-100); Mean Platelet Volume 9.5 fL (9.1-12.4); Platelet Count 158 K/mm3 (150-400); RDW Coefficient Variation 14.4 % (11.7-14.2); RDW Standard Deviation 46.1 fL (35.1-46.3); Red Blood Cell Count 4.45 M/mm3 (4.30-5.90); White Blood Cell Count 16.48 K/mm3 (4.00-11.30)
[2024-10-24 05:21] LABS: BAND PERCENT MAN 2 % (0-8); BASOPHILS PERCENT MAN 0 % (0-2); EOSINOPHILS ABSOLUTE MAN 0.16 K/mm3 (0.00-0.68); EOSINOPHILS PERCENT MAN 1 % (0-6); LYMPHOCYTES ABSOLUTE MAN 1.97 K/mm3 (0.84-5.20); LYMPHOCYTES PERCENT MAN 12 % (21-46); MONOCYTES ABSOLUTE MAN 1.97 K/mm3 (0.16-1.47); MONOCYTES PERCENT MAN 12 % (4-13); MYELOCYTE ABSOLUTE MAN 0.16 K/mm3 (0.00-0.00); MYELOCYTE PERCENT MAN 1 % (0-0); NEUTROPHILS ABSOLUTE MAN 12.19 K/mm3 (1.96-9.15); SEG NEUTROPHILS PERCENT MAN 72 % (41-73); TOTAL CELLS COUNTED 100
--- NOTE | 2024-10-24 05:27 | NUR ---
SHIFT SUMMARY: PT AOX4 SBA STAND PIVOT TO COMMODE OR TO USE URINAL. CHEST TUBE IS UNCLAMPED WITH TRACT DRAINAGE AND WITHOUT BUBBLES. PT REGULARLY COMPLAINS OF PAIN, MEDICATED PER EMR. CALLS APPROPRATELY AND ABLE TO MAKE NEEDS KNOWN. ANXIOUS ABOUT CONDITION AND ABOUT TRANSFER TO [facility]. EXPRESSES A BAD EXPERIENCE DURING HIS LAST ADMISSION THERE AND WOULD BENEFIT FROM A STRONG CASE MANAGEMENT FOLLOWING WHILE AT ANOTHER FACILITY DUE TO TRANSPORTATION ISSUES. PT TOLERATING MEDICATIONS WELL. NO ACUTE EVENTS OVERNIGHT. PT IN BED RESTING, BED IN LOWEST POSITION, CALL LIGHT IN REACH. CONTINUING CARE.
[2024-10-24 07:24] VITALS: BP 175/110
[2024-10-24 09:46] VITALS: BP 151/77
[2024-10-24] MEDS ORDERED: Furosemide 20 MG Tab PO ONE (11:45)
[2024-10-24 17:03] VITALS: BP 156/86
[2024-10-24 17:04] VITALS: BP 156/86
[2024-10-24] MEDS ORDERED: ALPRAZolam 0.5 MG Tab PO ONE ×2 (18:15→23:40)
--- NOTE | 2024-10-24 18:19 | NUR ---
SHIFT SUMMARY PT WILL BE [facility] TRANSFERRED TO [facility] FOR PROCEDURE. PT IS AWARE. CURRENTLY AWAITING TRANSPORT. REPORT GIVEN TO DAWIT ANDERSON. PT IS EXTREMELY ANXIOUS ABOUT HIS CURRENT SITUATION. PER CHEYANNE GRAMAJO TO GIVE ORDERED XANAX PRIOR TO TRANSPORT. PT IS STAND PIVOT TO BEDSIDE COMMODE, INDEPENDENTLY. CALLS APPROPRIATELY. TREATING PAIN PER EMAR. ALL PERSONAL ITEMS COLLECTED AND AT BEDSIDE FOR TRANSPORT. NO CHANGE IN APPEARENCE OF CHEST TUBE SITE. APPROX 10 CC OUT FOR THIS SHIFT.
[2024-10-24 19:37] VITALS: BP 166/95
--- NOTE | 2024-10-24 23:46 | NUR ---
PATIENT TAKEN VIA AMBULANCE GURNEY. XANAX GIVEN PO.
== END 2024-10-24 23:41 | disposition short-term general hospital (02) | DRG 871 ==
LOC: ER 13:51 → MEDS 15:55
PROVIDERS: Internal Medicine; Student in an Organized Health Care Education/Training Program; ADMIT Family Medicine
PROC: 3E03329 Introduction of Other Anti-infective into Peripheral Vein, Percutaneous Approach (ICD-10-PCS; 2024-10-16)
PROC: 0W9930Z Drainage of Right Pleural Cavity with Drainage Device, Percutaneous Approach (ICD-10-PCS; principal; 2024-10-20)
DX: A41.9 Sepsis, unspecified organism (principal); J18.9 Pneumonia, unspecified organism; J96.21 Acute and chronic respiratory failure with hypoxia; J44.0 Chronic obstructive pulmonary disease with (acute) lower respiratory infection; J44.1 Chronic obstructive pulmonary disease with (acute) exacerbation; J47.0 Bronchiectasis with acute lower respiratory infection; J93.12 Secondary spontaneous pneumothorax; M19.90 Unspecified osteoarthritis, unspecified site; N40.0 Benign prostatic hyperplasia without lower urinary tract symptoms; F41.9 Anxiety disorder, unspecified; I10 Essential (primary) hypertension; J43.9 Emphysema, unspecified; J98.4 Other disorders of lung; G89.29 Other chronic pain; Z87.19 Personal history of other diseases of the digestive system; Z88.8 Allergy status to other drugs, medicaments and biological substances; Z88.1 Allergy status to other antibiotic agents; Z79.51 Long term (current) use of inhaled steroids; Z79.2 Long term (current) use of antibiotics; Z79.899 Other long term (current) drug therapy; Z86.79 Personal history of other diseases of the circulatory system
CPT/HCPCS: 0202U; 0241U; 0528U; 32551; 36415; 71045; 71046; 71250; 80048; 80053; 82803; 83605; 83735; 83880; 84100; 84145; 84484; 85025; 87040; 87070; 87077; 87186; 87205; 93005; 93010; 94640; 94664; 94760; 94762; 99285-25; A9270; C1729; J0456; J0696; J1650; J2060; J2270; J2919; J7050; J7120

== ENCOUNTER → 2024-12-05 | Outpatient (CLI) | payer MEDICARE ==
[~2024-12-05] MED LIST changes: +ALBU2.5V5 NEB; +Atarax10 MG PO; +CELE100 PO; +MELA3 PO; +MOMETASONE 0.1%; +OMEP20ER PO; +OXYC5 PO; +PREG50 PO; +PROAIR DIGIHAL90 MCG INH; +SPIRIVA RESPIMAT4 G3 INH; +TAMSULOSIN HCL0.4 M1 PO; +TIZANIDINE HCL2 M1 PO
== END ==
LOC: LAB SHORT 16:36 → LAB 16:36
DX: J47.1 Bronchiectasis with (acute) exacerbation (principal)
CPT/HCPCS: 87070; 87077; 87186; 87205

== ENCOUNTER 2025-02-27 12:59 | Inpatient (IN) | payer MEDICARE ==
[~2025-02-27] VITALS: Ht 180.3 cm; Wt 65.1 kg
[2025-02-27 14:03] LABS: Influenza A, PCR NEGATIVE (NEGATIVE); Influenza B, PCR NEGATIVE (NEGATIVE); Resp Syncytial Virus, PCR NEGATIVE (NEGATIVE); SARS-Cov-2 (COVID-19) PCR, MMC NEGATIVE (NEGATIVE)
[2025-02-27 14:10] LABS: BASOPHILS ABSOLUTE AUTO 0.05 K/mm3 (0.00-0.23); BASOPHILS PERCENT AUTO 1 % (0-2); EOSINOPHILS ABSOLUTE AUTO 0.14 K/mm3 (0.00-0.68); EOSINOPHILS PERCENT AUTO 1 % (0-6); Hematocrit 45.3 % (37.0-53.0); Hemoglobin 15.9 g/dL (13.5-17.5); IMMATURE GRAN ABSOLUTE AUTO 0.03 K/mm3 (0.00-0.10); IMMATURE GRAN PERCENT AUTO 0 % (0-1); LYMPHOCYTES ABSOLUTE AUTO 1.55 K/mm3 (0.84-5.20); LYMPHOCYTES PERCENT AUTO 14 % (21-46); MONOCYTES ABSOLUTE AUTO 1.43 K/mm3 (0.16-1.47); MONOCYTES PERCENT AUTO 13 % (4-13); Mean Corpuscular HGB Conc 35.1 g/dL (31.5-36.5); Mean Corpuscular Volume 80 fL (80-100); NEUTROPHILS ABSOLUTE AUTO 7.69 K/mm3 (1.96-9.15); NEUTROPHILS PERCENT AUTO 71 % (41-73); NRBC ABSOLUTE 0.00 K/mm3 (0.00-0.02); NRBC Auto 0.0 /100 WBC (0.0-0.2); Platelet Count 375 K/mm3 (150-400); RDW Coefficient Variation 12.6 % (11.7-14.2); RDW Standard Deviation 36.1 fL (35.1-46.3)
[2025-02-27 14:28] LABS: Alanine Aminotransfer (ALT/SGP 23.0 U/L (12-78); Albumin, Blood 4.4 g/dL (3.4-5.0); Albumin/Globulin Ratio 0.9 (0.8-1.8); Anion Gap 10.0 mmol/L (3-11); Aspartate Aminotrans (AST/SGOT 17.0 U/L (12-37); Bilirubin, Total 0.8 mg/dL (0.1-1.0); Blood Urea Nitrogen 11.0 mg/dL (8-24); CO2, Blood 30.0 mmol/L (21-32); Calcium, Blood 9.8 mg/dL (8.5-10.1); Chloride, Blood 93.0 mmol/L (98-108); Creatinine, Blood 1.17 mg/dL (0.60-1.20); Globulin, Blood 4.8 g/dL (2.2-4.0); Glucose, Blood 113.0 mg/dL (70-99); Potassium, Blood 2.7 mmol/L (3.5-5.5); Sodium, Blood 130.0 mmol/L (136-145); Total Protein, Blood 9.2 g/dL (6.4-8.2)
[2025-02-27 15:49] LABS: Source, Urine Clean Catch
[2025-02-27 15:51] LABS: Bilirubin, Urine Neg (Neg); Glucose Qualitative, Urine Neg (Neg); Ketones, Urine Neg (Neg); Leukocyte Esterase, Urine Neg (Neg); Protein, Urine Neg (Neg); Specific Gravity, Urine 1.010 (1.003-1.022); Urobilinogen, Urine NORM (Normal)
[2025-02-27 15:56] LABS: Color, Urine Pale Yellow (P-Yellow)
[2025-02-27] MEDS ORDERED: Vancomycin (Pharmacy Consult) IV PRN (17:25)
[2025-02-27] MEDS ORDERED: NS 1,000 ML IV SCH (17:25)
[2025-02-27] MEDS ORDERED: CefTRIAXone Sodium 2,000 MG in NS 100 ML IV ONE (17:30)
[2025-02-27] MEDS ORDERED: Vancomycin (Pharmacy Consult) IV SCH (18:30)
[2025-02-27] MEDS ORDERED: Ipratropium/Albuterol SulF 2.5-0.5MG/3 ML Amp INH SCH (18:35)
[2025-02-27] MEDS ORDERED: FLU VACC TS2025-26(6MOS UP)/PF 45 MCG/0.5 ML SYRINGE IM SCH (18:35)
[2025-02-27] MEDS ORDERED: TORS10 (19:16)
[2025-02-27] MEDS ORDERED: CARVEDILOL6.25 MG PO (19:16)
[2025-02-27] MEDS ORDERED: SOAANZ20 M2 PO (20:19)
[2025-02-27] MEDS ORDERED: Lactobacil 2-S.Thermo-Bifido 1 1 Cap PO SCH (21:00)
[2025-02-27 21:40] VITALS: BP 144/82
--- NOTE | 2025-02-27 22:00 | NUR ---
Arrival to unit Patient arrived via gurney w/ some personal belongings from ER. Anthony, RN and myself assumed care as primary nurses. AOx4. Productive cough noted, pt reports chronic productive cough. 3LO2 upon arrival via ME, satting at desired range. Ad eyal. Following directions well. Pleasant/cooperative. Dyspneic w/ exertion, recovers quickly. Had snacks from pantry. Meds whole w/ apple juice. PRN pain meds available if needed. Settled to room. HAT MEASURER placed on by RT, Marisol Valentin. Denies needs at this time. Call light in reach.
[2025-02-28 04:40] VITALS: BP 111/59
[2025-02-28 04:45] LABS: BASOPHILS ABSOLUTE AUTO 0.07 K/mm3 (0.00-0.23); BASOPHILS PERCENT AUTO 1 % (0-2); EOSINOPHILS ABSOLUTE AUTO 0.16 K/mm3 (0.00-0.68); EOSINOPHILS PERCENT AUTO 2 % (0-6); Hematocrit 39.8 % (37.0-53.0); Hemoglobin 13.7 g/dL (13.5-17.5); IMMATURE GRAN ABSOLUTE AUTO 0.03 K/mm3 (0.00-0.10); IMMATURE GRAN PERCENT AUTO 0 % (0-1); LYMPHOCYTES ABSOLUTE AUTO 1.52 K/mm3 (0.84-5.20); LYMPHOCYTES PERCENT AUTO 17 % (21-46); MONOCYTES ABSOLUTE AUTO 1.83 K/mm3 (0.16-1.47); MONOCYTES PERCENT AUTO 21 % (4-13); Mean Corpuscular HGB Conc 34.4 g/dL (31.5-36.5); Mean Corpuscular Volume 84 fL (80-100); NEUTROPHILS ABSOLUTE AUTO 5.33 K/mm3 (1.96-9.15); NEUTROPHILS PERCENT AUTO 60 % (41-73); NRBC ABSOLUTE 0.00 K/mm3 (0.00-0.02); NRBC Auto 0.0 /100 WBC (0.0-0.2); Platelet Count 274 K/mm3 (150-400); RDW Coefficient Variation 12.9 % (11.7-14.2); RDW Standard Deviation 39.1 fL (35.1-46.3)
[2025-02-28 05:06] LABS: Magnesium, Blood 2.1 mg/dL (1.6-2.4)
[2025-02-28 05:12] LABS: Alanine Aminotransfer (ALT/SGP 17.0 U/L (12-78); Albumin, Blood 3.4 g/dL (3.4-5.0); Albumin/Globulin Ratio 1.0 (0.8-1.8); Anion Gap 6.0 mmol/L (3-11); Aspartate Aminotrans (AST/SGOT 11.0 U/L (12-37); Bilirubin, Total 0.4 mg/dL (0.1-1.0); Blood Urea Nitrogen 16.0 mg/dL (8-24); CO2, Blood 29.0 mmol/L (21-32); Calcium, Blood 8.8 mg/dL (8.5-10.1); Chloride, Blood 105.0 mmol/L (98-108); Creatinine, Blood 1.21 mg/dL (0.60-1.20); Globulin, Blood 3.4 g/dL (2.2-4.0); Glucose, Blood 90.0 mg/dL (70-99); Potassium, Blood 3.4 mmol/L (3.5-5.5); Sodium, Blood 137.0 mmol/L (136-145); Total Protein, Blood 6.8 g/dL (6.4-8.2)
[2025-02-28 07:21] VITALS: BP 124/66
[2025-02-28] MEDS ORDERED: Enoxaparin 40 MG/0.4 ML SYR SC SCH (09:00)
[2025-02-28] MEDS ORDERED: Torsemide 20 MG TAB PO SCH (09:00)
[2025-02-28] MEDS ORDERED: NS 250 ML IV PRN (09:10)
[2025-02-28] MEDS ORDERED: CefTRIAXone Sodium 2,000 MG in NS 100 ML IV SCH (12:00)
[2025-02-28 12:57] LABS: Acinetobacter baumannii DNA Not Detected copy/mL (NOT DETECT); CTX-M Resistance Gene Not Detected; Chlamydia pneumonia Not Detected (NOT DETECT); Enterobacter cloacae DNA Detected Bin >=10^7 copy/mL (NOT DETECT); Escherichia coli DNA Not Detected copy/mL (NOT DETECT); Haemophilus influenzae DNA Not Detected copy/mL (NOT DETECT); Human Coronavirus RNA Not Detected (NOT DETECT); Human Metapneumovirus RNA Not Detected (NOT DETECT); IMP Resistance Gene Not Detected; Influenza virus A RNA Not Detected (NOT DETECT); KPC Resistance Gene Not Detected; Klebsiella aerogenes DNA Not Detected copy/mL (NOT DETECT); Klebsiella oxytoca DNA Not Detected copy/mL (NOT DETECT); Klebsiella pneumoniae DNA Not Detected copy/mL (NOT DETECT); Moraxella catarrhalis DNA Not Detected copy/mL (NOT DETECT); NDM Resistance Gene Not Detected; OXA-48-like Resistance Gene Not Detected; Proteus sp DNA Not Detected copy/mL (NOT DETECT); Pseudomonas aeruginosa DNA Not Detected copy/mL (NOT DETECT); Rhinovirus+Enterovirus RNA Not Detected (NOT DETECT); Serratia marcescens DNA Not Detected copy/mL (NOT DETECT); Staphylococcus aureus DNA Not Detected copy/mL (NOT DETECT); Streptococcus agalactiae DNA Not Detected copy/mL (NOT DETECT); Streptococcus pneumoniae DNA Not Detected copy/mL (NOT DETECT); Streptococcus pyogenes DNA Not Detected copy/mL (NOT DETECT); VIM Resistance Gene Not Detected
[2025-02-28 12:58] LABS: Influenza virus B RNA Not Detected (NOT DETECT); Respiratory syncytial Vir RNA Not Detected (NOT DETECT)
[2025-02-28 15:57] VITALS: BP 118/68
--- NOTE | 2025-02-28 18:42 | NUR ---
SHIFT SUMMARY NO ACUTE CHANGES THIS SHIFT, VSS, MEDICATED PER MAR FOR CHRONIC PAIN, DANGLING AT BEDISDE AT THIS TIME, CALL LIGHT IN REACH, ABLE TO MAKE NEEDS KNOWN
[2025-02-28 19:23] VITALS: BP 134/65
--- NOTE | 2025-02-28 20:04 | NUR ---
Coughing Fit Patient had a prolonged productive coughing fit where he claimed he could not stop coughing and was starting to feel short of breath. With it, patient coughed up large amounts of thick green phlegm. Now patient is requesting cough syrup. Called Dr. Spencer Castelan RE patient's request. Dr. Castelan will review chart and put in orders.
[2025-02-28] MEDS ORDERED: Guaifenesin/Dextromethorphan Syrup 5 ML UDC PO PRN (20:10)
[2025-02-28] MEDS ORDERED: Albuterol 2.5 MG/3 ML VIAL INH PRN (20:15)
[2025-03-01 02:57] VITALS: BP 96/54
[2025-03-01 02:59] VITALS: BP 106/58
--- NOTE | 2025-03-01 04:51 | NUR ---
PT STILL COMPLAINING OF LOOSE STOOLS ALTHOUGH STATES THAT HE IS TOLERATING ORAL INTAKE MUCH BETTER. HAS MAINTAINED AN ADEQUATE PAIN LEVEL THIS EVENING AND IS FEELING BETTER. RESPONDING WELL TO BREATHING TREATMENTS AND STATES THAT IT FEELS EASIER TO BREATHE THAN UPON ADMISSION.
[2025-03-01 05:10] LABS: Alanine Aminotransfer (ALT/SGP 16.0 U/L (12-78); Albumin, Blood 3.2 g/dL (3.4-5.0); Albumin/Globulin Ratio 0.9 (0.8-1.8); Anion Gap 5.0 mmol/L (3-11); Aspartate Aminotrans (AST/SGOT 8.0 U/L (12-37); Bilirubin, Total 0.2 mg/dL (0.1-1.0); Blood Urea Nitrogen 18.0 mg/dL (8-24); CO2, Blood 30.0 mmol/L (21-32); Calcium, Blood 9.3 mg/dL (8.5-10.1); Chloride, Blood 107.0 mmol/L (98-108); Creatinine, Blood 1.3 mg/dL (0.60-1.20); Globulin, Blood 3.4 g/dL (2.2-4.0); Glucose, Blood 125.0 mg/dL (70-99); Potassium, Blood 4.4 mmol/L (3.5-5.5); Sodium, Blood 138.0 mmol/L (136-145); Total Protein, Blood 6.6 g/dL (6.4-8.2)
[2025-03-01 07:14] LABS: BASOPHILS ABSOLUTE AUTO 0.03 K/mm3 (0.00-0.23); BASOPHILS PERCENT AUTO 0 % (0-2); EOSINOPHILS ABSOLUTE AUTO 0.01 K/mm3 (0.00-0.68); EOSINOPHILS PERCENT AUTO 0 % (0-6); Hematocrit 37.9 % (37.0-53.0); Hemoglobin 12.5 g/dL (13.5-17.5); IMMATURE GRAN ABSOLUTE AUTO 0.03 K/mm3 (0.00-0.10); IMMATURE GRAN PERCENT AUTO 0 % (0-1); LYMPHOCYTES ABSOLUTE AUTO 0.92 K/mm3 (0.84-5.20); LYMPHOCYTES PERCENT AUTO 10 % (21-46); MONOCYTES ABSOLUTE AUTO 1.57 K/mm3 (0.16-1.47); MONOCYTES PERCENT AUTO 17 % (4-13); Mean Corpuscular HGB Conc 33.0 g/dL (31.5-36.5); Mean Corpuscular Volume 87 fL (80-100); NEUTROPHILS ABSOLUTE AUTO 6.89 K/mm3 (1.96-9.15); NEUTROPHILS PERCENT AUTO 73 % (41-73); NRBC ABSOLUTE 0.00 K/mm3 (0.00-0.02); NRBC Auto 0.0 /100 WBC (0.0-0.2); Platelet Count 259 K/mm3 (150-400); RDW Coefficient Variation 13.0 % (11.7-14.2); RDW Standard Deviation 41.2 fL (35.1-46.3)
[2025-03-01 07:33] VITALS: BP 128/79
[2025-03-01 08:44] LABS: Vancomycin, Trough 20.8 ug/mL (5.0-10.0)
[2025-03-01] MEDS ORDERED: MECL12.5 PO (11:21)
[2025-03-01] MEDS ORDERED: ONDA4ODT MM (11:21)
[2025-03-01] MEDS ORDERED: TERB250 PO (11:22)
[2025-03-01 17:23] VITALS: BP 150/73
--- NOTE | 2025-03-01 18:31 | NUR ---
SHIFT SUMMARY: PATIENT A+O X4 AND ABLE TO MAKE NEEDS KNOWN THROUGHOUT THIS DAY. PATIENT IS NOTED TO BE ANXIOUS. PATIENT EDUCATED DURING THIS SHIFT ON COPD EXACERBATION, PATIENT NOTED TO SAY "I THINK IM BEING GIVEN TOO MUCH OXYGEN, AND THIS IS WHY I AM SO SHORT OF BREATH". PATIENT RE-EDUCATED ON OXYGEN AND COPD. LUNGS ARE STILL NOTED TO BE DIMINISHED THROUGHOUT. S1 S2 HEARD ON ASCULATION. REMAINS INDEPENDENT IN ROOM WHEN CONNECTED TO 02. WEARS 2L AT BASELINE. PLAN TO TRANSITION TO PO ABX AND D/C BACK TO PRIOR LIVING SITUATION 03/02/12.
[2025-03-01 19:50] VITALS: BP 132/81
--- NOTE | 2025-03-02 04:10 | NUR ---
SHIFT SUMMARY PATIENT HAD NO ACUTE CHANGES. DENIES CHEST PAIN AND N/V. VSS/AFEBRILE. ON 3L O2 NC AND 2L BASELINE. REPORTED BACK PAIN AND OXYCODONE 5 MG GIVEN PER EMAR. REPORTED MUSCLE SPASM AND ZANAFLEX 4 MG GIVEN PER EMAR. PIV INTACT. COOPERATIVE WITH CARE. CALL LIGHT IN REACH. BED IN LOWEST POSITION. WILL CONTINUE TO MONITOR UNTIL DAY SHIFT NURSE ASSUMES CARE.
[2025-03-02 04:44] VITALS: BP 111/57
[2025-03-02 05:38] LABS: BASOPHILS ABSOLUTE AUTO 0.05 K/mm3 (0.00-0.23); BASOPHILS PERCENT AUTO 1 % (0-2); EOSINOPHILS ABSOLUTE AUTO 0.02 K/mm3 (0.00-0.68); EOSINOPHILS PERCENT AUTO 0 % (0-6); Hematocrit 40.1 % (37.0-53.0); Hemoglobin 13.0 g/dL (13.5-17.5); IMMATURE GRAN ABSOLUTE AUTO 0.04 K/mm3 (0.00-0.10); IMMATURE GRAN PERCENT AUTO 0 % (0-1); LYMPHOCYTES ABSOLUTE AUTO 1.37 K/mm3 (0.84-5.20); LYMPHOCYTES PERCENT AUTO 13 % (21-46); MONOCYTES ABSOLUTE AUTO 1.62 K/mm3 (0.16-1.47); MONOCYTES PERCENT AUTO 16 % (4-13); Mean Corpuscular HGB Conc 32.4 g/dL (31.5-36.5); Mean Corpuscular Volume 89 fL (80-100); NEUTROPHILS ABSOLUTE AUTO 7.21 K/mm3 (1.96-9.15); NEUTROPHILS PERCENT AUTO 70 % (41-73); NRBC ABSOLUTE 0.00 K/mm3 (0.00-0.02); NRBC Auto 0.0 /100 WBC (0.0-0.2); Platelet Count 256 K/mm3 (150-400); RDW Coefficient Variation 13.2 % (11.7-14.2); RDW Standard Deviation 43.0 fL (35.1-46.3)
[2025-03-02 05:59] LABS: Alanine Aminotransfer (ALT/SGP 17.0 U/L (12-78); Albumin, Blood 3.3 g/dL (3.4-5.0); Albumin/Globulin Ratio 1.0 (0.8-1.8); Anion Gap 6.0 mmol/L (3-11); Aspartate Aminotrans (AST/SGOT 10.0 U/L (12-37); Bilirubin, Total 0.2 mg/dL (0.1-1.0); Blood Urea Nitrogen 20.0 mg/dL (8-24); CO2, Blood 32.0 mmol/L (21-32); Calcium, Blood 9.5 mg/dL (8.5-10.1); Chloride, Blood 106.0 mmol/L (98-108); Creatinine, Blood 1.15 mg/dL (0.60-1.20); Globulin, Blood 3.3 g/dL (2.2-4.0); Glucose, Blood 103.0 mg/dL (70-99); Potassium, Blood 4.0 mmol/L (3.5-5.5); Sodium, Blood 140.0 mmol/L (136-145); Total Protein, Blood 6.6 g/dL (6.4-8.2)
[2025-03-02 07:26] VITALS: BP 143/83
[2025-03-02] MEDS ORDERED: Polyethylene Glycol 3350 17 gm PO SCH (09:00)
[2025-03-02 15:35] VITALS: BP 132/91
--- NOTE | 2025-03-02 15:46 | NUR ---
SHIFT SUMMARY- PT ALERT AND ORIENTED INDEPENDENT IN THE ROOM, 1PA IN THE HALLS WITH O2 TANK. PT WALKED 2 LOOPS ON MEDICAL FLOOR WITH THIS RN AND WAS ABLE TO KEEP SATS 88-91% ON ROOM AIR FOR THE FIRST 2/3 OF THE FIRST LOOP, THEN SATS WENT TO 87 AND STAYED THERE. PLACED THE PT ON 1L O2 VIA NC AND HIS SATS IMPROVED BACK TO 89-91%. PT PLACED BACKON 1L VIA NC UPON RETURN TO THE ROOM. ONCE AT REST SATS WERE 93%. PT SEEMED TO TOLLERATE THE ACTIVITY WELL, AND REQUESTED STAFF TO WALK WITH HIM AGAIN LATER THIS SHIFT. PLAN IS FOR THE PT TO STAY TONIGHT AND GET ONE MORE DOSE OF ROCEPHIN, THEN HE WILL BE DISCHARGED AND RETURN TO THE INFUSION CLINIC AT 1000 ON TUESDAY FOR HIS NEXT DOSE. PT IS AWARE. NURSE NOTIFY IS IN PLACE FOR THE DC PROCESS TOMORROW.
[2025-03-02 20:04] VITALS: BP 135/79
--- NOTE | 2025-03-03 04:04 | NUR ---
SHIFT SUMMARY PATIENT HAD NO ACUTE CHANGES. ALERT ORIENTED AND INDEPENDENT. DENIES CHEST PAIN AND N/V. RT IN FOR BREATHING TX X ONE. OXYCODONE 5 MG GIVEN FOR CHRONIC BACK PAIN X 2. MINIMAL COUGHING EVENTS THIS SHIFT. ON 1L O2 NC AND 2L O2 BASELINE. ZANAFLEX 4 MG GIVEN FOR MUSCLE SPASM X ONE. CALL LIGHT IN REACH. BED IN LOWEST POSITION. WILL CONTINUE TO MONITOR UNTIL DAY SHIFT NURSE ASSUMES CARE.
[2025-03-03 05:03] LABS: BASOPHILS ABSOLUTE AUTO 0.06 K/mm3 (0.00-0.23); BASOPHILS PERCENT AUTO 0 % (0-2); EOSINOPHILS ABSOLUTE AUTO 0.05 K/mm3 (0.00-0.68); EOSINOPHILS PERCENT AUTO 0 % (0-6); Hematocrit 41.1 % (37.0-53.0); Hemoglobin 13.5 g/dL (13.5-17.5); IMMATURE GRAN ABSOLUTE AUTO 0.05 K/mm3 (0.00-0.10); IMMATURE GRAN PERCENT AUTO 0 % (0-1); LYMPHOCYTES ABSOLUTE AUTO 1.93 K/mm3 (0.84-5.20); LYMPHOCYTES PERCENT AUTO 14 % (21-46); MONOCYTES ABSOLUTE AUTO 1.95 K/mm3 (0.16-1.47); MONOCYTES PERCENT AUTO 14 % (4-13); Mean Corpuscular HGB Conc 32.8 g/dL (31.5-36.5); Mean Corpuscular Volume 87 fL (80-100); NEUTROPHILS ABSOLUTE AUTO 9.90 K/mm3 (1.96-9.15); NEUTROPHILS PERCENT AUTO 71 % (41-73); NRBC ABSOLUTE 0.00 K/mm3 (0.00-0.02); NRBC Auto 0.0 /100 WBC (0.0-0.2); Platelet Count 275 K/mm3 (150-400); RDW Coefficient Variation 13.2 % (11.7-14.2); RDW Standard Deviation 41.4 fL (35.1-46.3)
[2025-03-03 05:20] VITALS: BP 129/81
[2025-03-03 06:11] LABS: Alanine Aminotransfer (ALT/SGP 18.0 U/L (12-78); Albumin, Blood 3.5 g/dL (3.4-5.0); Albumin/Globulin Ratio 1.0 (0.8-1.8); Anion Gap 6.0 mmol/L (3-11); Aspartate Aminotrans (AST/SGOT 12.0 U/L (12-37); Bilirubin, Total 0.1 mg/dL (0.1-1.0); Blood Urea Nitrogen 21.0 mg/dL (8-24); CO2, Blood 34.0 mmol/L (21-32); Calcium, Blood 9.2 mg/dL (8.5-10.1); Chloride, Blood 100.0 mmol/L (98-108); Creatinine, Blood 1.16 mg/dL (0.60-1.20); Globulin, Blood 3.5 g/dL (2.2-4.0); Glucose, Blood 98.0 mg/dL (70-99); Potassium, Blood 3.5 mmol/L (3.5-5.5); Sodium, Blood 136.0 mmol/L (136-145); Total Protein, Blood 7.0 g/dL (6.4-8.2)
[2025-03-03 07:57] VITALS: BP 136/69
--- NOTE | 2025-03-03 09:58 | NUR ---
SPOKE TO DR ABOUT ABX [place]- PT HAS ABX ORDERED AT 0900. HE INITIALLY HAD INFUSION CLINIC TIME AT 1000, HOWEVER THAT TIME WAS DIFFICULT FOR HIM TO MAKE OUT PT, HE REQUESTED A LATER TIME AND THE ONLY TIME AVAILABLE WAS [address]. [address] ABOUT GIVING TODAYS DOSE A FEW HOURS LATER SO THAT TOMORROW HE IS NOT GOING SO LONG OVER THE 24 HOURS BETWEEN DOSES. RECIEVED OK TO GIVE 0900 DOSE AT 1200. SPOKE TO PT, HE IS AGREEABLE, SPOKE TO PHARMACY, [facility] AGREES SPLITTING THE DIFFERENCE WOULD BE MORE IDEAL THAN GOING NEARLY 36 HOURS BETWEEN DOSES.
[2025-03-03] MEDS ORDERED: CEFTRIAXONE1 GM IV (15:21)
[2025-03-03] MEDS ORDERED: PRED20 PO (15:24)
[2025-03-03] MEDS ORDERED: IPRAT-ALBUT 0.5-3 ML INH (15:24)
[2025-03-03] MEDS ORDERED: SENN187 PO (15:25)
[2025-03-03] MEDS ORDERED: VISBIOME 112.51 EACH PO (15:26)
[2025-03-03] MEDS ORDERED: CEFP200 PO (15:28)
[2025-03-03] MEDS ORDERED: FLUTICASONE-SA1 EAC1 INH (15:30)
--- NOTE | 2025-03-03 18:00 | NUR ---
DISCHARGE NOTE- PT WAS GIVEN VERBAL AND WRITTEN DISCHARGE INSTRUCTIONS AND ACKNOWLEDGED UNDERSTANDING OF THEM. PRIOR TO DISCHARGE THE PT BECAME AGGITATED WITH STAFF. SEVERAL STAFF OFFERED HIM A SHOWER BUT HE WAS INSISTENT THAT ONLY ONE POWDER TRUCK DRIVER COULD GIVE HIM A SHOWER. SPOKE TO THAT POWDER TRUCK DRIVER, SHE STATED HE HAD MADE SOME STATEMENTS THAT MADE HER UNCOMFORTABLE. OTHER STAFF ATTEMPTED TO HELP HIM BUT HE DECLINED SAYING SHE WILL DO IT WHEN SHE GETS TIME. THEN HE BECAME AGGITATED WITH STAFF FOR TAKING TOO LONG. PT WAS REMINDED HE WAS GETTING MORE AGGITATED, THAT HE WAS ON STEROIDS, AND THAT COULD BE WHY HE WAS SO AGGITATED. HE SEEMED TO CALM A LITTLE. PT MEDS WERE FAXED TO HIS PHARMACY [facility], AT HIS REQUEST. LEFT AC IV WAS FLUSHED AND SL AND COVERED WITH DEENA WRAP, PER THE MD REQUEST THE IV WAS LEFT IN [facility] FOR THE PT INF[facility]ION [facility]ENTER APPOINTMENT TOMORROW. PT WAS ESCORTED OUT VIA WC BY THIS RN. HE CALMED HE GOT TO HIS VEHICLE AND HAD NO S&S OF DISTRESS NOTED AT THE TIME OF DISCHARGE.
[2025-03-04] MEDS ORDERED: CefTRIAXone Sodium 1,000 MG in NS 100 ML IV SCH (12:00)
== END 2025-03-03 16:36 | disposition home or self-care (01) | DRG 193 ==
LOC: ER 12:59 → MEDS 18:28 → ENPENDDIS 03-03 11:52 → MEDS 03-03 16:36
PROVIDERS: Student in an Organized Health Care Education/Training Program; ADMIT Student in an Organized Health Care Education/Training Program
DX: J18.9 Pneumonia, unspecified organism (principal); J96.21 Acute and chronic respiratory failure with hypoxia; E87.1 Hypo-osmolality and hyponatremia; J44.0 Chronic obstructive pulmonary disease with (acute) lower respiratory infection; J44.1 Chronic obstructive pulmonary disease with (acute) exacerbation; M19.90 Unspecified osteoarthritis, unspecified site; E87.6 Hypokalemia; F12.90 Cannabis use, unspecified, uncomplicated; N40.0 Benign prostatic hyperplasia without lower urinary tract symptoms; Z79.891 Long term (current) use of opiate analgesic; Z79.51 Long term (current) use of inhaled steroids; Z79.899 Other long term (current) drug therapy; Z88.8 Allergy status to other drugs, medicaments and biological substances; Z88.1 Allergy status to other antibiotic agents; Z79.2 Long term (current) use of antibiotics; Z99.81 Dependence on supplemental oxygen
CPT/HCPCS: 0528U; 36415; 71046; 80048; 80053; 80202; 81003; 83605; 83735; 84145; 85025; 87070; 87077; 87186; 87205; 87637; 93005; 93010; 94640; 94762; 96374; 99285-25; A9270; J0456; J0696; J1650; J3373; J7030; J7050; J7512

== ENCOUNTER 2025-03-04 08:44 | Day surgery (SDC) | payer MEDICARE ==
[~2025-03-04 08:44] MED LIST changes: +CARVEDILOL6.25 MG PO; +CEFP200 PO; +CEFTRIAXONE1 GM IV; +FLUTICASONE-SA1 EAC1 INH; +IPRAT-ALBUT 0.5-3 ML INH; +ONDA4ODT MM; +SENN187 PO; +SOAANZ20 M2 PO; +TERB250 PO; +TORS10; +VISBIOME 112.51 EACH PO
[2025-03-04] MEDS ORDERED: CefTRIAXone Sodium 1,000 MG in NS 100 ML IV SCH (11:50)
[2025-03-04 17:10] VITALS: BP 139/81
[2025-03-05] MEDS ORDERED: TERB250 PO (17:03)
== END 2025-03-04 17:31 | disposition home or self-care (01) ==
LOC: ATC 08:44
DX: J44.0 Chronic obstructive pulmonary disease with (acute) lower respiratory infection (principal); J44.1 Chronic obstructive pulmonary disease with (acute) exacerbation; Z88.8 Allergy status to other drugs, medicaments and biological substances; Z88.1 Allergy status to other antibiotic agents
CPT/HCPCS: 96365; J0696

== ENCOUNTER 2025-03-05 01:40 | Day surgery (SDC) | payer MEDICARE ==
[2025-03-05] MEDS ORDERED: CefTRIAXone Sodium 1,000 MG in NS 100 ML IV SCH (06:00)
[2025-03-05 16:58] VITALS: BP 142/81
[2025-03-05] MEDS ORDERED: TERB250 PO (17:03)
== END 2025-03-05 17:38 | disposition home or self-care (01) ==
LOC: ATC 01:40
DX: J44.0 Chronic obstructive pulmonary disease with (acute) lower respiratory infection (principal); J96.11 Chronic respiratory failure with hypoxia; N40.0 Benign prostatic hyperplasia without lower urinary tract symptoms; Z88.0 Allergy status to penicillin; Z88.6 Allergy status to analgesic agent; Z88.8 Allergy status to other drugs, medicaments and biological substances
CPT/HCPCS: 96365; J0696

== ENCOUNTER 2025-03-06 00:58 | Day surgery (SDC) | payer MEDICARE ==
[2025-03-06] MEDS ORDERED: CefTRIAXone Sodium 1,000 MG in NS 100 ML IV SCH (06:00)
[2025-03-06 16:53] VITALS: BP 131/69
== END 2025-03-06 17:17 | disposition home or self-care (01) ==
LOC: ATC 00:58
DX: J44.0 Chronic obstructive pulmonary disease with (acute) lower respiratory infection (principal); J43.9 Emphysema, unspecified; J18.9 Pneumonia, unspecified organism; J47.0 Bronchiectasis with acute lower respiratory infection; Z88.1 Allergy status to other antibiotic agents; Z88.8 Allergy status to other drugs, medicaments and biological substances
CPT/HCPCS: 96365; J0696

== ENCOUNTER → 2025-03-22 | Outpatient (CLI) | payer MEDICARE | END | disposition home or self-care (01) | LOC: LAB SHORT 07:00 → LAB 07:00 | DX: J43.1 Panlobular emphysema (principal) | CPT/HCPCS: 87070; 87205 ==

== ENCOUNTER → 2025-04-26 | Outpatient (CLI) | payer MEDICARE | END | disposition home or self-care (01) | LOC: LAB SHORT 16:10 → LAB 16:10 | DX: J43.2 Centrilobular emphysema (principal); J47.1 Bronchiectasis with (acute) exacerbation; R06.02 Shortness of breath | CPT/HCPCS: 87070; 87077; 87186; 87205 ==